=== PATIENT | female | born 1975 | race Caucasian/White ===

== ENCOUNTER 2017-07-10 22:24 | Emergency (ER) | payer MEDICAID ==
[2017-07-11] MEDS: ONDANSETRON (ODT) 4 MG TAB ODT (03:00)
[2017-07-11] MEDS: HYDROCODONE/APAP (5/325) TAB PO (03:00)
== END 2017-07-11 03:05 | disposition home or self-care (01) ==
LOC: FTE 22:24
DX: M54.2 Cervicalgia (principal); M54.9 Dorsalgia, unspecified
CPT/HCPCS: 72040; 99284-25